=== PATIENT | male | born 1985 | race Caucasian/White ===

== ENCOUNTER 2017-04-03 14:32 | Emergency (ER) | payer OTHER ==
--- NOTE | 2017-04-03 15:26 | ED Physician Documentation ---
Abdominal Pain - HISTORIAN Historian: patient, parent - HPI Stated Complaint: constipation Chief Complaint: Abdominal Pain Additonal Information: pt no bm for 6 days-usually has bm q 1-3 days. Eats small amt-has had DERMOID CYST spinal core had 4 surgeries since dx age 19yrs. Onset: days ago (5-6 days ago. Pt has learning disability and did not te) Duration: sudden-onset Timing: still present Context: denies: out of country travel Severity: moderate Quality: none, pain (mild discomfort) Associated Symptoms: none - ROS CONST: no problems GI/: constipation CVS/RESP: none MS/SKIN/LYMPH: none NEURO/PSYCH: none, other (has hx anxiety and depression) - SOCIAL HX Smoking History: non-smoker Alcohol Use: none - FAMILY HX Family History: no significant history - PAST HX Past History: other (dermoid cyst prev poss diabetes PUD ANXIETY DEPRESSION LEARNING DISABILITY SPINA BIFIDA) Home Medications: Ambulatory Orders Medication Instructions Recorded Docusate Sodium [Stool Softener] 100 mg PO BID 12/01/12 Lubiprostone [Amitiza] 24 mcg PO BID 12/01/12 Oxycodone HCl/Acetaminophen 1 each PO u2 03/27/13 [Percocet 5-325 Mg Tablet] Amitriptyline HCl [Elavil] 50 mg PO HS u2 01/26/14 Linaclotide [Linzess] 145 mcg PO 04/03/17 Mirtazapine [Remeron] 15 mg PO HS 04/03/17 oxyCODONE HCL [OxyCONTIN] 20 mg PO Q8 04/03/17 Allergies/Adverse Reactions: Allergies Allergy/AdvReac Type Severity Reaction Status Date / Time cephalexin monohydrate Allergy Verified 04/03/17 14:46 [From Keflex] Penicillins Allergy Verified 04/03/17 14:46 pertussis vaccine,adsorbed Allergy Verified 04/03/17 14:46 [Pertussis Vaccine,Adsorbed] - VITAL SIGNS Vital Signs: Vital Signs Temp Pulse Resp BP Pulse Ox 97.9 F 103 H 16 124/78 99 04/03/17 14:40 04/03/17 14:40 04/03/17 14:40 04/03/17 14:40 04/03/17 14:40 - REVIEWED ASSESSMENTS Nursing Assessment Reviewed: Yes Vitals Reviewed: Yes Abdominal Pain Physical Exam - Physical Exam General Appearance: mild distress EENT: eye inspection normal NECK: normal inspection RESPIRATORY: no resp distress CVS: reg rate & rhythm, heart sounds normal ABDOMEN: soft, tenderness (SLIGHT TENDERNESS SEVERAL SPOTS ABDOMEN NO GUARDING OR RIGIDITY-BOWEL SOUNDS PRESENT) BACK: normal inspection SKIN: warm/dry, normal color. No: cyanosis, diaphoresis, jaundice EXTREMITIES: non-tender, normal range of motion, other (DOES NOT AMBULATE WELL USUAL DT DERMOID CYST AND SPINAL SURGERIES) NEURO: oriented X3 Vital Signs: Vital Signs Temp Pulse Resp BP Pulse Ox 97.9 F 103 H 16 124/78 99 04/03/17 14:40 04/03/17 14:40 04/03/17 14:40 04/03/17 14:40 04/03/17 14:40 Discharge Clincal Impression: Constipation, DERMOPID CYST Referrals: Primary Doctor,No [Primary Care Provider] - 2 Days Home Medications: Ambulatory Orders Docusate Sodium [Stool Softener] 100 mg PO BID 12/01/12 Lubiprostone [Amitiza] 24 mcg PO BID 12/01/12 Oxycodone HCl/Acetaminophen [Percocet 5-325 Mg Tablet] 1 each PO u2 03/27/13 Amitriptyline HCl [Elavil] 50 mg PO HS u2 01/26/14 Linaclotide [Linzess] 145 mcg PO 04/03/17 Mirtazapine [Remeron] 15 mg PO HS 04/03/17 oxyCODONE HCL [OxyCONTIN] 20 mg PO Q8 04/03/17 Comments: WILL USE OIL RETENTION FOLLOWED BY [facility] - GIVE VERY SLOWLY TO AVOID LEAKAGE FOLLOW W/ GO-LYTELY Condition: Good Disposition: 01 HOME, SELF-CARE Decision to Admit: NO Decision Time: 15:25
[2017-04-03 15:36] VITALS: BP 124/77
== END 2017-04-03 15:20 | disposition home or self-care (01) ==
LOC: ED 14:32
DX: K59.00 Constipation, unspecified (principal)
CPT/HCPCS: 99283